=== PATIENT | female | born 1985 | race Caucasian/White ===

== ENCOUNTER 2016-05-18 14:57 | Emergency (ER) | payer MEDICAID ==
[~2016-05-18] VITALS: Ht 160 cm; Wt 81.6 kg
[2016-05-18 15:14] VITALS: BP 155/78; PULSE 88; RESP 16; TEMP 97.6; O2SAT 97
--- NOTE | 2016-05-18 16:20 | NUR ---
Pt placed to ER bed 04 and to gown. Pt here with c/o vaginal bleeding x 3 weeks. Pt states she began her menstrual cycle 3 weeks ago for a week, then stopped and bleeding started back two days later. Pt describes bleeding as clotts. Pt states that she changes her tampon on average q 2 hours with small clotts noted. Pt denies c/o abdominal pain at this time.
--- NOTE | 2016-05-18 16:25 | NUR ---
Lab at bedside.
--- NOTE | 2016-05-18 16:29 | NUR ---
Dr. Waite at bedside to assess pt.
[2016-05-18 16:37] LABS: EOSINOPHILS # (AUTO) 0.1 K/uL (0.0-0.4); MEAN CORPUSCULAR HEMOGLOBIN 23 pg (27-31); MEAN CORPUSCULAR HGB CONC 32 % (32-36); MEAN CORPUSCULAR VOLUME 72 fL (79.0-98.0)
[2016-05-18 16:44] LABS: BASOPHILS % (AUTO) 0.3 % (0.0-2.0); EOSINOPHILS % (AUTO) 0.6 % (0.0-4.0); HEMATOCRIT 29.1 % (36-48); HEMOGLOBIN 9.2 g/dL (12.0-16.0); LYMPHOCYTES # (AUTO) 1.5 K/uL (1.0-5.5); LYMPHOCYTES % (AUTO) 14.7 % (20.5-51.5); MONOCYTES # (AUTO) 0.4 K/uL (0.0-1.0); MONOCYTES % (AUTO) 4.2 % (1.7-9.3); NEUTROPHILS # (AUTO) 8.3 K/uL (1.8-7.7); NEUTROPHILS % (AUTO) 80.2 % (40.0-70.0); PLATELET COUNT (AUTO) 219 K/uL (130-430); RED BLOOD CELL COUNT(AUTO) 4.06 MIL/uL (4.2-6.2); WHITE BLOOD COUNT (AUTO) 10.3 K/uL (4.8-10.8)
[2016-05-18 16:49] LABS: CALCIUM 8.7 mg/dL (8.4-11.0); CREATININE 0.82 mg/dL (0.55-1.30); POTASSIUM 3.5 mmol/L (3.5-5.1)
[2016-05-18 16:59] LABS: BLOOD, URINE 3+ (NEGATIVE); CLARITY/URINE HAZY (CLEAR); COLOR,URINE YELLOW (YELLOW); GLUCOSE,URINE NEGATIVE (NEGATIVE); KETONES,URINE TRACE (NEGATIVE); LEUKOCYTE ESTERASE ,URINE NEGATIVE (NEGATIVE); NITRITE, URINE NEGATIVE (NEGATIVE); PH,URINE 5.5 (5.0-8.0); PROTEIN URINE 2+ (NEGATIVE); UROBILINOGEN,URINE 0.2 (0.2-1.0)
[2016-05-18 17:00] LABS: ALBUMIN 3.8 g/dL (3.4-4.8); TOTAL BILIRUBIN 0.4 mg/dL (0.0-1.0)
[2016-05-18 17:14] LABS: BILIRUBIN,URINE 1+ (NEGATIVE); RBC,URINE >100 /HPF (0-3)
[2016-05-18 17:15] LABS: BACTERIA,URINE MODERATE /HPF (None Seen); MUCUS,URINE None Seen /LPF (None Seen)
--- NOTE | 2016-05-18 17:16 | NUR ---
Consent for blood transfusion signed by pt and Dr. Waite. Pt has no questions regarding transfusion. Pt states that she has had multiple transfusions in the past without reaction.
--- NOTE | 2016-05-18 17:18 | NUR ---
PRBC REQUEST SENT TO LAB
--- NOTE | 2016-05-18 18:00 | NUR ---
Pt resting calmly, even and non-labored respirations, denies c/o pain or discomfort and no needs verbalized at this time.
--- NOTE | 2016-05-18 18:05 | NUR ---
Called lab to check status of blood. Not ready yet. Stated in 30 minutes.
--- NOTE | 2016-05-18 18:15 | NUR ---
Pelvic exam performed by Dr. Waite with female RN Darrius at bedside for entire examination. Patient tolerated procedure well. Patient assisted to position of comfort after examination.
--- NOTE | 2016-05-18 18:48 | NUR ---
Called lab. Stated blood is ready.
--- NOTE | 2016-05-18 19:05 | NUR ---
Consent signed per pt agreeing to administration of blood. Blood has been type and crossmatched. Blood sent from blood bank. Information on unit of blood checked against patient wristband at bedside by two nurses. All information matches. Patient or responsible democrat informed of potential complications associated with blood transfusion. Informed of possible transfusion reaction symptoms. Aware of need to notify nurse at once of itching, shortness of breath, flushing, feeling of impending doom, or other symptoms not previously present. Vital signs taken within 5 minutes prior to initiation of transfusion. RN will remain with patient for first 15 minutes of transfusion at which time vital signs will be re-assessed.
--- NOTE | 2016-05-18 19:20 | NUR ---
No transfusion reaction noted during first 15 minutes. Pt denies c/o SOB, no C/P, VSS. Unit 1 PRBC infusing at 280 mL/hr. PIV to RAC patent and secure.
--- NOTE | 2016-05-18 20:11 | NUR ---
Transfusion of 1unit PRBC finished infusing. Pt VSS. No s/s transfusion reaction noted. Pt states "I feel better". Pt respirations even and unlabored. Speaking in full, complete sentences.
[2016-05-18] MEDS ORDERED: NACL 0.9% 1,000 ML IV ONE (20:15)
[2016-05-18 21:28] VITALS: BP 122/75; PULSE 78; RESP 18; TEMP 98.6; O2SAT 98
--- NOTE | 2016-05-18 21:28 | NUR ---
Patient given written and verbal discharge instructions and verbalizes understanding. ER MD discussed with patient the results and treatment provided. Patient in stable condition. ID arm band removed. IV catheter removed intact and dressing applied, no active bleeding. Rx of Ibuprofen given. Patient educated on pain management and to follow up with PMD. Pain Scale 0/10. Opportunity for questions provided and answered.
== END 2016-05-18 21:28 | disposition home or self-care (01) ==
LOC: SED 14:57
DX: N93.8 Other specified abnormal uterine and vaginal bleeding (principal); D62 Acute posthemorrhagic anemia
CPT/HCPCS: 36415; 80053; 81000; 81025; 84702; 85025; 85610; 85730; 86886; 86900; 86901; 86920; 87086; 96360; 99284; J7030; J7050; P9021

== ENCOUNTER 2016-05-22 11:04 | Emergency (ER) | payer MEDICAID ==
[~2016-05-22] VITALS: Ht 160 cm; Wt 81.6 kg
--- NOTE | 2016-05-22 11:04 | NUR ---
BROUGHT BACK TO BED #5 AND TRIAGED. REPORT GIVEN TO ISMAEL
[2016-05-22 11:05] VITALS: BP 145/54; PULSE 79; RESP 18; TEMP 98.2; O2SAT 99
--- NOTE | 2016-05-22 11:05 | NUR ---
ER at bedside examining patient.
--- NOTE | 2016-05-22 11:10 | NUR ---
Pt presents to ED c/o vag. bleeding x 1 month w/ history of bleeding.
--- NOTE | 2016-05-22 11:12 | NUR ---
pt seen by TONGUER. Pt reports running out Progestrone.
--- NOTE | 2016-05-22 11:15 | NUR ---
Pt ambulated to restroom w/o assist steady gait.
[2016-05-22] MEDS ORDERED: ONDANSETRON HCL 4 MG/2 ML VIAL IVP ONE (11:30)
[2016-05-22] MEDS ORDERED: NACL 0.9% 1,000 ML IV ONE (11:30)
[2016-05-22 11:35] LABS: BILIRUBIN,URINE NEGATIVE (NEGATIVE); BLOOD, URINE 3+ (NEGATIVE); CLARITY/URINE HAZY (CLEAR); COLOR,URINE RED (YELLOW); GLUCOSE,URINE NEGATIVE (NEGATIVE); KETONES,URINE NEGATIVE (NEGATIVE); LEUKOCYTE ESTERASE ,URINE TRACE (NEGATIVE); NITRITE, URINE NEGATIVE (NEGATIVE); PH,URINE 7.5 (5.0-8.0); PROTEIN URINE 2+ (NEGATIVE)
--- NOTE | 2016-05-22 11:50 | NUR ---
Lab at bedside for specimen collection.
[2016-05-22 11:53] LABS: BACTERIA,URINE FEW /HPF (None Seen); MUCUS,URINE None Seen /LPF (None Seen); RBC,URINE >100 /HPF (0-3); WBC,URINE 0-3 /HPF (0-3)
[2016-05-22 11:56] LABS: BASOPHILS % (AUTO) 0.4 % (0.0-2.0); EOSINOPHILS # (AUTO) 0.1 K/uL (0.0-0.4); EOSINOPHILS % (AUTO) 2.1 % (0.0-4.0); HEMATOCRIT 30.3 % (36-48); HEMOGLOBIN 9.1 g/dL (12.0-16.0); LYMPHOCYTES # (AUTO) 0.9 K/uL (1.0-5.5); MEAN CORPUSCULAR HEMOGLOBIN 22 pg (27-31); MEAN CORPUSCULAR HGB CONC 30 % (32-36); MEAN CORPUSCULAR VOLUME 73 fL (79.0-98.0); MONOCYTES # (AUTO) 0.5 K/uL (0.0-1.0); MONOCYTES % (AUTO) 9.3 % (1.7-9.3); NEUTROPHILS # (AUTO) 4.2 K/uL (1.8-7.7); NEUTROPHILS % (AUTO) 72.2 % (40.0-70.0); PLATELET COUNT (AUTO) 179 K/uL (130-430); RED BLOOD CELL COUNT(AUTO) 4.13 MIL/uL (4.2-6.2); RED CELL DISTRIBUTION WIDTH 20.5 % (9.0-15.0); WHITE BLOOD COUNT (AUTO) 5.7 K/uL (4.8-10.8)
[2016-05-22 12:00] LABS: CALCIUM 8.6 mg/dL (8.4-11.0); CREATININE 0.74 mg/dL (0.55-1.30); POTASSIUM 3.8 mmol/L (3.5-5.1)
--- NOTE | 2016-05-22 12:00 | NUR ---
IVF infusing .Pt tolerating well continuing to monitor.
[2016-05-22 12:04] LABS: ALBUMIN 3.4 g/dL (3.4-4.8); INR 0.9 (0.8-1.2); TOTAL BILIRUBIN 0.3 mg/dL (0.0-1.0); TOTAL PROTEIN, SERUM 7.4 g/dL (6.4-8.3)
--- NOTE | 2016-05-22 12:20 | NUR ---
at bedside for POC. Pt verbalized undrstanding.
[2016-05-22 13:15] VITALS: BP 140/56; PULSE 80; RESP 18; TEMP 98.2; O2SAT 99
--- NOTE | 2016-05-22 13:15 | NUR ---
Patient given written and verbal discharge instructions and verbalizes understanding. ER MD discussed with patient the results and treatment provided. Given copies of tests performed in ER. Patient in stable condition. ID arm band removed. IV catheter removed intact and dressing applied, no active bleeding. Rx of cipro,provera given. Patient educated on pain management and to follow up with PMD. Pain Scale 0. Opportunity for questions provided and answered.
== END 2016-05-22 13:15 | disposition home or self-care (01) ==
LOC: SED 11:04
DX: N93.8 Other specified abnormal uterine and vaginal bleeding (principal); N39.0 Urinary tract infection, site not specified
CPT/HCPCS: 36415; 80053; 81000; 81025; 84703; 85025; 85610; 85730; 96361; 96374; 99284; J2405

== ENCOUNTER 2016-05-23 10:40 | Day surgery (SDC) | payer MEDICAID ==
[~2016-05-23] VITALS: Ht 160 cm; Wt 86.2 kg
[2016-05-23 10:44] VITALS: BP 136/85; PULSE 103; RESP 16; TEMP 97.7; O2SAT 98
--- NOTE | 2016-05-23 10:51 | NUR ---
Arrived as walk in for vaginal bleeding x 4 weeks. Blood is now copious, clots q10min. States she feels weak. Patient to ER bed to gown for evaluation. Side rails up. Report given to Antonia LUTZ.
--- NOTE | 2016-05-23 10:53 | NUR ---
ER Dr. Joy at bedside examining patient.
--- NOTE | 2016-05-23 11:00 | NUR ---
Pt brought by family member, ambulatory, pale, A&OX4,respirations even and unlabored, pt c/o vaginal week x 4 days, pt on provera, pt wearing diaper d/t amount of bleeding, blood clots every 10 minutes, skin pink and warm, cap refill <3.
[2016-05-23 11:18] LABS: BASOPHILS % (AUTO) 0.3 % (0.0-2.0); EOSINOPHILS # (AUTO) 0.1 K/uL (0.0-0.4); EOSINOPHILS % (AUTO) 1.4 % (0.0-4.0); HEMATOCRIT 27.9 % (36-48); HEMOGLOBIN 8.9 g/dL (12.0-16.0); LYMPHOCYTES # (AUTO) 1.1 K/uL (1.0-5.5); LYMPHOCYTES % (AUTO) 20.4 % (20.5-51.5); MEAN CORPUSCULAR HEMOGLOBIN 24 pg (27-31); MEAN CORPUSCULAR HGB CONC 32 % (32-36); MEAN CORPUSCULAR VOLUME 74 fL (79.0-98.0); MONOCYTES # (AUTO) 0.6 K/uL (0.0-1.0); NEUTROPHILS # (AUTO) 3.7 K/uL (1.8-7.7); NEUTROPHILS % (AUTO) 67.9 % (40.0-70.0); PLATELET COUNT (AUTO) 181 K/uL (130-430); RED BLOOD CELL COUNT(AUTO) 3.79 MIL/uL (4.2-6.2); RED CELL DISTRIBUTION WIDTH 19.8 % (9.0-15.0); WHITE BLOOD COUNT (AUTO) 5.5 K/uL (4.8-10.8)
[2016-05-23 11:26] LABS: CALCIUM 8.4 mg/dL (8.4-11.0); CREATININE 0.87 mg/dL (0.55-1.30); POTASSIUM 3.8 mmol/L (3.5-5.1)
[2016-05-23 11:30] LABS: ALBUMIN 3.4 g/dL (3.4-4.8); TOTAL BILIRUBIN 0.2 mg/dL (0.0-1.0); TOTAL PROTEIN, SERUM 7.4 g/dL (6.4-8.3)
--- NOTE | 2016-05-23 11:50 | NUR ---
Dr Joy at bedside performing vaginal exam, RN (Abigail )at bedside , procedure well tolerated, pt's VS WNL
--- NOTE | 2016-05-23 12:30 | NUR ---
Pt on stable condition, denies pain or discomfort, VSS. respirations even and unlabored.
--- NOTE | 2016-05-23 13:35 | NUR ---
Patient transferred to outpatient surgery via wheelchair as ordered by Dr Joy and Adelaide. ER physician Dr Joy agreeable to transfer patient to outpatient surgery. P. Patient belongings inventoried and will be sent with patient. Copy of nursing notes, lab reports, EKG, Physicians Orders and X-rays to be sent with patient. Report given to OR nurse. Pt on stable condition, VSS.
[2016-05-23 14:03] VITALS: O2SAT 98
[2016-05-23] MEDS ORDERED: MIDAZOLAM HCL 5 MG/5 ML VIAL IVP ONE (15:20)
[2016-05-23] MEDS ORDERED: WATER FOR IRRIGATION,STERILE 1,000 ML IRRIG.SOLN IR ONE (15:20)
[2016-05-23] MEDS ORDERED: PROPOFOL 200MG/ 20ML VIAL (DIPRIVAN) IV ONE (15:20)
[2016-05-23] MEDS ORDERED: fentaNYL CITRATE/PF 100 MCG/2 ML AMP IVP ONE (15:20)
[2016-05-23] MEDS ORDERED: LR 1,000 ML IV.SOLN IV ONE (15:20)
[2016-05-23] MEDS ORDERED: ONDANSETRON HCL 4 MG/2 ML VIAL IVP ONE (15:20)
[2016-05-23] MEDS ORDERED: ONDANSETRON HCL 4 MG/2 ML VIAL IVP PRN (15:45)
[2016-05-23] MEDS ORDERED: OXYCODONE/ACETAMINOPHEN 5-325 TABLET PO PRN ×2 (15:45)
[2016-05-23] MEDS ORDERED: MORPHINE SULFATE 10 MG/ML VIAL IVP PRN (15:45)
[2016-05-23] MEDS ORDERED: LR 1,000 ML IV SCH ×2 (16:14→19:30)
[2016-05-23] MEDS ORDERED: METOCLOPRAMIDE HCL 10 MG/2 ML VIAL IVP PRN (16:15)
[2016-05-23] MEDS ORDERED: MEPERIDINE HCL/PF 50 MG/ML AMP IVP PRN ×2 (16:15)
[2016-05-23] MEDS ORDERED: MEPERIDINE HCL/PF 25 MG/ML DISP.SYRIN IVP PRN (16:15)
[2016-05-23] MEDS ORDERED: MEPERIDINE HCL/PF 25 MG/ML DISP.SYRIN ONE (16:18)
[2016-05-23 16:36] VITALS: BP 116/70; PULSE 64; RESP 16
== END 2016-05-23 17:16 | disposition home or self-care (01) ==
LOC: SED 10:40 → EDSTATUS 13:45 → SDS 13:52
PROVIDERS: ATTEND Obstetrics & Gynecology
DX: N92.0 Excessive and frequent menstruation with regular cycle (principal); D64.9 Anemia, unspecified
CPT/HCPCS: 36415; 58120; 76830; 76857; 80053; 85025; 86886; 86900; 86901; 88305; J2175; J2250; J2405; J2704; J3010; J7120

== ENCOUNTER 2016-07-18 11:10 | Emergency (ER) | payer MEDICAID ==
[~2016-07-18] VITALS: Ht 157.5 cm; Wt 81.6 kg
[2016-07-18 11:16] VITALS: BP_SYST 125
[2016-07-18 12:08] LABS: BILIRUBIN,URINE NEGATIVE (NEGATIVE); BLOOD, URINE NEGATIVE (NEGATIVE); CLARITY/URINE CLEAR (CLEAR); COLOR,URINE YELLOW (YELLOW); GLUCOSE,URINE NEGATIVE (NEGATIVE); KETONES,URINE NEGATIVE (NEGATIVE); LEUKOCYTE ESTERASE ,URINE TRACE (NEGATIVE); NITRITE, URINE NEGATIVE (NEGATIVE); PROTEIN URINE NEGATIVE (NEGATIVE); UROBILINOGEN,URINE 0.2 (0.2-1.0)
[2016-07-18 12:09] LABS: BASOPHILS % (AUTO) 0.5 % (0.0-2.0); EOSINOPHILS # (AUTO) 0.1 K/uL (0.0-0.4); EOSINOPHILS % (AUTO) 1.7 % (0.0-4.0); HEMATOCRIT 26.3 % (36-48); HEMOGLOBIN 7.7 g/dL (12.0-16.0); LYMPHOCYTES # (AUTO) 1.2 K/uL (1.0-5.5); LYMPHOCYTES % (AUTO) 17.3 % (20.5-51.5); MEAN CORPUSCULAR HEMOGLOBIN 19 pg (27-31); MEAN CORPUSCULAR HGB CONC 29 % (32-36); MEAN CORPUSCULAR VOLUME 66 fL (79.0-98.0); MONOCYTES # (AUTO) 0.4 K/uL (0.0-1.0); MONOCYTES % (AUTO) 5.8 % (1.7-9.3); NEUTROPHILS % (AUTO) 74.7 % (40.0-70.0); PLATELET COUNT (AUTO) 249 K/uL (130-430); RED CELL DISTRIBUTION WIDTH 18.4 % (9.0-15.0); WHITE BLOOD COUNT (AUTO) 6.7 K/uL (4.8-10.8)
[2016-07-18 12:11] LABS: CREATININE 0.78 mg/dL (0.55-1.30); POTASSIUM 3.7 mmol/L (3.5-5.1)
[2016-07-18 12:13] LABS: PROTHROMBIN TIME 10.9 SECS (9.5-12.5)
[2016-07-18 12:16] LABS: ALBUMIN 3.8 g/dL (3.4-4.8); TOTAL BILIRUBIN 0.3 mg/dL (0.0-1.0); TOTAL PROTEIN, SERUM 7.9 g/dL (6.4-8.3)
[2016-07-18 12:23] LABS: BACTERIA,URINE FEW /HPF (None Seen); MUCUS,URINE 1+ /LPF (None Seen); RBC,URINE 0-3 /HPF (0-3)
[2016-07-18 13:00] VITALS: BP_SYST 125
== END 2016-07-18 13:00 | disposition home or self-care (01) ==
LOC: SED 11:10
DX: D64.9 Anemia, unspecified (principal)
CPT/HCPCS: 36415; 80053; 81000-TC; 83880; 84484; 85025; 85610-TC; 87086; 93005; 99285

== ENCOUNTER 2016-07-24 13:16 | Emergency (ER) | payer MEDICAID ==
[~2016-07-24] VITALS: Ht 160 cm; Wt 81.6 kg
[2016-07-24 13:37] VITALS: BP 131/85; PULSE 104; RESP 20; TEMP 98.8; O2SAT 100
[2016-07-24 14:07] LABS: BILIRUBIN,URINE NEGATIVE (NEGATIVE); BLOOD, URINE NEGATIVE (NEGATIVE); CLARITY/URINE SL HAZY (CLEAR); COLOR,URINE YELLOW (YELLOW); GLUCOSE,URINE NEGATIVE (NEGATIVE); KETONES,URINE NEGATIVE (NEGATIVE); LEUKOCYTE ESTERASE ,URINE NEGATIVE (NEGATIVE); NITRITE, URINE NEGATIVE (NEGATIVE); PH,URINE 8.5 (5.0-8.0); PROTEIN URINE NEGATIVE (NEGATIVE)
[2016-07-24 14:12] LABS: BASOPHILS % (AUTO) 0.3 % (0.0-2.0); EOSINOPHILS # (AUTO) 0.2 K/uL (0.0-0.4); EOSINOPHILS % (AUTO) 1.4 % (0.0-4.0); HEMOGLOBIN 7.6 g/dL (12.0-16.0); LYMPHOCYTES # (AUTO) 0.7 K/uL (1.0-5.5); LYMPHOCYTES % (AUTO) 6.6 % (20.5-51.5); MEAN CORPUSCULAR HEMOGLOBIN 19 pg (27-31); MEAN CORPUSCULAR HGB CONC 29 % (32-36); MEAN CORPUSCULAR VOLUME 65 fL (79.0-98.0); MONOCYTES # (AUTO) 0.8 K/uL (0.0-1.0); MONOCYTES % (AUTO) 6.8 % (1.7-9.3); NEUTROPHILS # (AUTO) 9.5 K/uL (1.8-7.7); NEUTROPHILS % (AUTO) 84.9 % (40.0-70.0); PLATELET COUNT (AUTO) 211 K/uL (130-430); RED BLOOD CELL COUNT(AUTO) 4.05 MIL/uL (4.2-6.2); WHITE BLOOD COUNT (AUTO) 11.2 K/uL (4.8-10.8)
[2016-07-24 14:14] LABS: HEMATOCRIT 26.2 % (36-48)
[2016-07-24 14:18] LABS: CALCIUM 9.1 mg/dL (8.4-11.0); CREATININE 0.78 mg/dL (0.55-1.30); POTASSIUM 3.7 mmol/L (3.5-5.1)
[2016-07-24 14:23] LABS: ALBUMIN 3.8 g/dL (3.4-4.8); TOTAL BILIRUBIN 0.4 mg/dL (0.0-1.0)
[2016-07-24 15:56] VITALS: BP 120/79; PULSE 101; RESP 16; TEMP 98; O2SAT 100
== END 2016-07-24 15:56 | disposition home or self-care (01) ==
LOC: SED 13:16
DX: R42 Dizziness and giddiness (principal); R53.1 Weakness; D64.9 Anemia, unspecified
CPT/HCPCS: 36415; 80053; 81003; 85025; 99284

== ENCOUNTER 2017-03-11 08:27 | Emergency (ER) | payer MEDICAID ==
[~2017-03-11] VITALS: Ht 157.5 cm; Wt 81.6 kg
[2017-03-11 08:27] VITALS: BP_SYST 126
[2017-03-11 09:40] LABS: BASOPHILS % (AUTO) 0.4 % (0.0-2.0); EOSINOPHILS # (AUTO) 0.2 K/uL (0.0-0.4); EOSINOPHILS % (AUTO) 2.2 % (0.0-4.0); HEMATOCRIT 33.1 % (36-48); HEMOGLOBIN 10.2 g/dL (12.0-16.0); LYMPHOCYTES # (AUTO) 1.3 K/uL (1.0-5.5); LYMPHOCYTES % (AUTO) 16.4 % (20.5-51.5); MEAN CORPUSCULAR HEMOGLOBIN 23 pg (27-31); MEAN CORPUSCULAR HGB CONC 31 % (32-36); MEAN CORPUSCULAR VOLUME 76 fL (79.0-98.0); MONOCYTES # (AUTO) 0.6 K/uL (0.0-1.0); NEUTROPHILS # (AUTO) 5.8 K/uL (1.8-7.7); PLATELET COUNT (AUTO) 263 K/uL (130-430); RED BLOOD CELL COUNT(AUTO) 4.36 MIL/uL (4.2-6.2); RED CELL DISTRIBUTION WIDTH 15.4 % (9.0-15.0); WHITE BLOOD COUNT (AUTO) 7.9 K/uL (4.8-10.8)
[2017-03-11 09:58] LABS: CALCIUM 8.9 mg/dL (8.4-11.0); CREATININE 0.8 mg/dL (0.55-1.30); POTASSIUM 3.7 mmol/L (3.5-5.1)
[2017-03-11 10:05] LABS: PROTHROMBIN TIME 10.4 SECS (9.5-12.5)
[2017-03-11 10:17] LABS: ALBUMIN 3.5 g/dL (3.4-4.8); THYROID STIMULATING HORMONE 1.23 uIu/mL (0.34-4.82); TOTAL BILIRUBIN 0.4 mg/dL (0.0-1.0)
[2017-03-11 10:39] LABS: BILIRUBIN,URINE NEGATIVE (NEGATIVE); BLOOD, URINE 3+ (NEGATIVE); CLARITY/URINE HAZY (CLEAR); COLOR,URINE RED (YELLOW); GLUCOSE,URINE NEGATIVE (NEGATIVE); KETONES,URINE NEGATIVE (NEGATIVE); LEUKOCYTE ESTERASE ,URINE TRACE (NEGATIVE); NITRITE, URINE NEGATIVE (NEGATIVE); PROTEIN URINE 3+ (NEGATIVE); UROBILINOGEN,URINE 0.2 (0.2-1.0)
[2017-03-11 10:59] LABS: FREE T4 (FREE THYROXINE) 0.9 ng/dL (0.6-1.6)
[2017-03-11] MEDS ORDERED: ACETAMINOPHEN 500 MG TABLET PO ONE (11:15)
[2017-03-11 12:05] VITALS: BP_SYST 120
[2017-03-11 13:13] LABS: BACTERIA,URINE RARE /HPF (None Seen); RBC,URINE >100 /HPF (0-3)
== END 2017-03-11 12:05 | disposition home or self-care (01) ==
LOC: SED 08:27
DX: N93.9 Abnormal uterine and vaginal bleeding, unspecified (principal); Z86.2 Personal history of diseases of the blood and blood-forming organs and certain disorders involving the immune mechanism
CPT/HCPCS: 36415; 80053; 81000-TC; 81025; 84439; 84443-TC; 84702-TC; 85025; 85610-TC; 86900; 86901; 87086; 99285

== ENCOUNTER 2017-03-13 06:24 | Emergency (ER) | payer MEDICAID ==
[~2017-03-13] VITALS: Ht 160 cm; Wt 81.6 kg
[2017-03-13 06:45] VITALS: BP_SYST 126
[2017-03-13] MEDS ORDERED: NACL 0.9% 1,000 ML IV ONE (08:00)
[2017-03-13 08:11] LABS: BASOPHILS % (AUTO) 0.5 % (0.0-2.0); EOSINOPHILS # (AUTO) 0.1 K/uL (0.0-0.4); EOSINOPHILS % (AUTO) 1.1 % (0.0-4.0); HEMATOCRIT 26.1 % (36-48); HEMOGLOBIN 8.2 g/dL (12.0-16.0); LYMPHOCYTES # (AUTO) 0.9 K/uL (1.0-5.5); LYMPHOCYTES % (AUTO) 8.7 % (20.5-51.5); MEAN CORPUSCULAR HEMOGLOBIN 24 pg (27-31); MEAN CORPUSCULAR HGB CONC 32 % (32-36); MEAN CORPUSCULAR VOLUME 75 fL (79.0-98.0); MONOCYTES # (AUTO) 0.5 K/uL (0.0-1.0); MONOCYTES % (AUTO) 5.4 % (1.7-9.3); NEUTROPHILS # (AUTO) 8.3 K/uL (1.8-7.7); NEUTROPHILS % (AUTO) 84.3 % (40.0-70.0); PLATELET COUNT (AUTO) 217 K/uL (130-430); RED BLOOD CELL COUNT(AUTO) 3.46 MIL/uL (4.2-6.2); RED CELL DISTRIBUTION WIDTH 15.4 % (9.0-15.0); WHITE BLOOD COUNT (AUTO) 9.8 K/uL (4.8-10.8)
[2017-03-13] MEDS ORDERED: fentaNYL CITRATE/PF 100 MCG/2 ML AMP IVP ONE (08:15)
[2017-03-13 08:34] LABS: CALCIUM 8.5 mg/dL (8.4-11.0); CREATININE 0.83 mg/dL (0.55-1.30); POTASSIUM 3.9 mmol/L (3.5-5.1)
[2017-03-13 08:39] LABS: PROTHROMBIN TIME 10.5 SECS (9.5-12.5)
[2017-03-13 08:51] LABS: ALBUMIN 3.4 g/dL (3.4-4.8); TOTAL BILIRUBIN 0.3 mg/dL (0.0-1.0)
[2017-03-13 10:45] VITALS: BP_SYST 130
== END 2017-03-13 10:45 | disposition home or self-care (01) ==
LOC: SED 06:24
DX: N94.6 Dysmenorrhea, unspecified (principal); Z86.2 Personal history of diseases of the blood and blood-forming organs and certain disorders involving the immune mechanism
CPT/HCPCS: 36415; 80053; 85025; 85610; 85730; 96361; 96374; 99284; J3010; J7030

== ENCOUNTER 2019-02-14 13:02 | Emergency (ER) | payer OTHER ==
[2019-02-14] MEDS ORDERED: PROCHLORPERAZINE EDISYLATE 10 MG/2 ML VIAL ONE (14:44)
[2019-02-14] MEDS ORDERED: MORPHINE 4 MG/ML INJ. SYRINGE ONE (14:44)
[2019-02-14] MEDS ORDERED: NS 1000 ML IV.SOLN IV ONE (14:44)
[2019-03-06 14:34] LABS: INR 1.1 (0.8-1.2); PROTHROMBIN TIME 10.6 SECS (9.5-12.5)
[2019-03-06 14:35] LABS: CALCIUM 8.3 mg/dL (8.4-11.0); CREATININE 0.72 mg/dL (0.55-1.30); POTASSIUM 3.6 mmol/L (3.5-5.1)
[2019-03-06 14:36] LABS: ALBUMIN 3.8 g/dL (3.4-4.8); TOTAL BILIRUBIN 0.4 mg/dL (0.0-1.0)
[2019-03-06 14:38] LABS: HEMATOCRIT 28.3 % (36-48); HEMOGLOBIN 8.6 g/dL (12.0-16.0); MEAN CORPUSCULAR HEMOGLOBIN 19 pg (27-31); MEAN CORPUSCULAR HGB CONC 30 % (32-36); MEAN CORPUSCULAR VOLUME 64 fL (79.0-98.0); NEUTROPHILS % (AUTO) 84.3 % (40.0-70.0); PLATELET COUNT (AUTO) 225 K/uL (130-430); RED BLOOD CELL COUNT(AUTO) 4.44 MIL/uL (4.2-6.2); RED CELL DISTRIBUTION WIDTH 20.3 % (9.0-15.0); WHITE BLOOD COUNT (AUTO) 8.2 K/uL (4.8-10.8)
[2019-03-06 14:39] LABS: BASOPHILS % (AUTO) 0.4 % (0.0-2.0); EOSINOPHILS # (AUTO) 0.1 K/uL (0.0-0.4); EOSINOPHILS % (AUTO) 1.4 % (0.0-4.0); LYMPHOCYTES # (AUTO) 0.6 K/uL (1.0-5.5); LYMPHOCYTES % (AUTO) 6.7 % (20.5-51.5); MONOCYTES # (AUTO) 0.6 K/uL (0.0-1.0); MONOCYTES % (AUTO) 7.2 % (1.7-9.3)
[2019-03-06 14:40] LABS: CLARITY/URINE CLEAR (CLEAR); COLOR,URINE YELLOW (YELLOW)
[2019-03-06 14:41] LABS: BILIRUBIN,URINE NEGATIVE (NEGATIVE); BLOOD, URINE NEGATIVE (NEGATIVE); GLUCOSE,URINE NEGATIVE (NEGATIVE); KETONES,URINE NEGATIVE (NEGATIVE); LEUKOCYTE ESTERASE ,URINE NEGATIVE (NEGATIVE); NITRITE, URINE NEGATIVE (NEGATIVE); PROTEIN URINE NEGATIVE (NEGATIVE)
== END 2019-02-14 16:00 | disposition home or self-care (01) ==
LOC: SED 13:02
DX: D64.9 Anemia, unspecified (principal); R11.2 Nausea with vomiting, unspecified
CPT/HCPCS: 36415; 80053; 81003; 85025; 85610; 85730; 86710; 86886; 86900; 86901; 93005; 96361; 96374; 96375; 99284; J0780; J2270; J7030

== ENCOUNTER 2019-04-11 16:04 | Emergency (ER) | payer OTHER ==
[~2019-04-11] VITALS: Ht 160 cm; Wt 77.1 kg
[2019-04-11 16:31] VITALS: BP_SYST 127
--- NOTE | 2019-04-11 16:40 | NUR ---
Patient triaged and placed in waiting room. VSS and patient appears in no acute distress at this time. Accompanied by friend , awaiting available bed, and MD notified of need for MSE.
--- NOTE | 2019-04-11 17:45 | NUR ---
Per registration, pt LWBS
== END 2019-04-11 17:45 | disposition left against medical advice (07) ==
LOC: SED 16:04
DX: R53.1 Weakness (principal); Z53.21 Procedure and treatment not carried out due to patient leaving prior to being seen by health care provider

== ENCOUNTER 2019-05-30 11:05 | Emergency (ER) | payer OTHER ==
[~2019-05-30] VITALS: Ht 160 cm; Wt 77.1 kg
--- NOTE | 2019-05-30 11:10 | NUR ---
Patient to ER bed 7 to gown for evaluation. Side rails up.
[2019-05-30 11:12] VITALS: BP_SYST 125
--- NOTE | 2019-05-30 11:12 | NUR ---
Patient presented to ER C/O vaginal bleeding . Patient A&Ox4, ambulatory to ER, afebrile, skin pink and warm, pain 12/19 , N/V/D. Patient states she had has left pelvic pain today & vaginal bleed x2 weeks, LMP 05/18/2019.
--- NOTE | 2019-05-30 11:20 | NUR ---
Dr Hilario at bedside examining patient
[2019-05-30] MEDS ORDERED: KETOROLAC TROMETHAMINE 30 MG VIAL IVP ONE (11:45)
[2019-05-30] MEDS ORDERED: NACL 0.9% 1,000 ML IV ONE (11:45)
[2019-05-30 11:55] LABS: BASOPHILS % (AUTO) 0.3 % (0.0-2.0); EOSINOPHILS # (AUTO) 0.1 K/uL (0.0-0.4); HEMATOCRIT 28.6 % (36-48); HEMOGLOBIN 8.7 g/dL (12.0-16.0); LYMPHOCYTES # (AUTO) 1.2 K/uL (1.0-5.5); MEAN CORPUSCULAR HEMOGLOBIN 20 pg (27-31); MEAN CORPUSCULAR HGB CONC 30 % (32-36); MEAN CORPUSCULAR VOLUME 66 fL (79.0-98.0); MONOCYTES # (AUTO) 0.7 K/uL (0.0-1.0); MONOCYTES % (AUTO) 8.3 % (1.7-9.3); NEUTROPHILS # (AUTO) 6.9 K/uL (1.8-7.7); NEUTROPHILS % (AUTO) 77.4 % (40.0-70.0); PLATELET COUNT (AUTO) 188 K/uL (130-430); RED BLOOD CELL COUNT(AUTO) 4.32 MIL/uL (4.2-6.2); RED CELL DISTRIBUTION WIDTH 20.2 % (9.0-15.0); WHITE BLOOD COUNT (AUTO) 8.9 K/uL (4.8-10.8)
[2019-05-30 12:05] LABS: CALCIUM 8.4 mg/dL (8.4-11.0); CREATININE 0.75 mg/dL (0.55-1.30); POTASSIUM 3.3 mmol/L (3.5-5.1)
[2019-05-30 13:02] VITALS: BP_SYST 125
--- NOTE | 2019-05-30 13:04 | NUR ---
Patient given written and verbal discharge instructions and verbalizes understanding. ER MD discussed with patient the results and treatment provided. Patient in stable condition. ID arm band removed. IV catheter removed intact and dressing applied, no active bleeding. Rx of Motrin given. Patient educated on pain management and to follow up with PMD. Pain Scale 2/10. Opportunity for questions provided and answered. Medication side effect fact sheet provided.
== END 2019-05-30 13:04 | disposition home or self-care (01) ==
LOC: SED 11:05
DX: N93.9 Abnormal uterine and vaginal bleeding, unspecified (principal); R42 Dizziness and giddiness; R03.0 Elevated blood-pressure reading, without diagnosis of hypertension
CPT/HCPCS: 36415; 76856; 80048; 81025; 85025; 96361; 96374; 99284; J1885; J7030

== ENCOUNTER 2019-09-14 00:41 | Emergency (ER) | payer BC, OTHER ==
[~2019-09-14] VITALS: Ht 160 cm; Wt 81.6 kg
[2019-09-14 00:50] VITALS: BP_SYST 131
--- NOTE | 2019-09-14 01:00 | NUR ---
PT AAO AND AMBULATORY C/O ACUTE ONSET OF ABDOMNIAL PAIN 12/19. 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
--- NOTE | 2019-09-14 01:07 | NUR ---
ER Dr. HU at bedside examining patient.
--- NOTE | 2019-09-14 01:25 | NUR ---
Patient to ER bed CHAIR 1 to gown for evaluation.
--- NOTE | 2019-09-14 01:45 | NUR ---
CT SCAN COMPLETE
[2019-09-14 01:50] LABS: BASOPHILS % (AUTO) 0.3 % (0.0-2.0); EOSINOPHILS # (AUTO) 0.1 K/uL (0.0-0.4); EOSINOPHILS % (AUTO) 1.1 % (0.0-4.0); HEMATOCRIT 30.1 % (36-48); HEMOGLOBIN 9.5 g/dL (12.0-16.0); LYMPHOCYTES # (AUTO) 1.6 K/uL (1.0-5.5); LYMPHOCYTES % (AUTO) 16.6 % (20.5-51.5); MEAN CORPUSCULAR HEMOGLOBIN 23 pg (27-31); MEAN CORPUSCULAR HGB CONC 32 % (32-36); MEAN CORPUSCULAR VOLUME 74 fL (79.0-98.0); MONOCYTES # (AUTO) 0.7 K/uL (0.0-1.0); MONOCYTES % (AUTO) 6.8 % (1.7-9.3); NEUTROPHILS # (AUTO) 7.2 K/uL (1.8-7.7); NEUTROPHILS % (AUTO) 75.2 % (40.0-70.0); PLATELET COUNT (AUTO) 219 K/uL (130-430); RED BLOOD CELL COUNT(AUTO) 4.09 MIL/uL (4.2-6.2); RED CELL DISTRIBUTION WIDTH 16.3 % (9.0-15.0); WHITE BLOOD COUNT (AUTO) 9.6 K/uL (4.8-10.8)
[2019-09-14 02:04] LABS: BILIRUBIN,URINE NEGATIVE (NEGATIVE); BLOOD, URINE NEGATIVE (NEGATIVE); CLARITY/URINE CLEAR (CLEAR); COLOR,URINE YELLOW (YELLOW); GLUCOSE,URINE NEGATIVE (NEGATIVE); KETONES,URINE TRACE (NEGATIVE); LEUKOCYTE ESTERASE ,URINE NEGATIVE (NEGATIVE); NITRITE, URINE NEGATIVE (NEGATIVE); PROTEIN URINE TRACE (NEGATIVE); UROBILINOGEN,URINE 0.2 (0.2-1.0)
[2019-09-14 02:10] LABS: CREATININE 0.82 mg/dL (0.55-1.30); POTASSIUM 3.5 mmol/L (3.5-5.1)
[2019-09-14 02:15] LABS: ALBUMIN 3.9 g/dL (3.4-4.8); TOTAL BILIRUBIN 0.3 mg/dL (0.0-1.0)
--- NOTE | 2019-09-14 02:15 | NUR ---
PT MOVED TO BED 5. PT GOWNED AND SIDERAILS UP.
--- NOTE | 2019-09-14 02:45 | NUR ---
DR. HU AT BEDSIDE TO RE-EVALUATE. U/S ORDERED.
[2019-09-14] MEDS ORDERED: NACL 0.9% 1,000 ML IV ONE (03:00)
[2019-09-14] MEDS ORDERED: ONDANSETRON HCL 4 MG/2 ML VIAL IVP ONE (03:00)
[2019-09-14] MEDS ORDERED: fentaNYL CITRATE/PF 100 MCG/2 ML AMP IVP ONE (03:00)
[2019-09-14 04:38] VITALS: BP_SYST 131
--- NOTE | 2019-09-14 04:38 | NUR ---
Patient given written and verbal discharge instructions and verbalizes understanding. DR. MAYTE ASHLEY MD discussed with patient the results and treatment provided. Patient in stable condition. ID arm band removed. IV catheter removed intact and dressing applied, no active bleeding. Rx of ZOFRAN given. Patient educated on pain management and to follow up with PMD. Pain Scale 0/10. Opportunity for questions provided and answered. Medication side effect fact sheet provided.
== END 2019-09-14 04:38 | disposition home or self-care (01) ==
LOC: SED 00:41
DX: K80.20 Calculus of gallbladder without cholecystitis without obstruction (principal); R11.10 Vomiting, unspecified; Z86.2 Personal history of diseases of the blood and blood-forming organs and certain disorders involving the immune mechanism
CPT/HCPCS: 36415; 74176; 76705; 80053; 81003; 81025; 83690; 85025; 96361; 96374; 96375; 99285; J2405; J3010; J7030

== ENCOUNTER 2019-09-26 23:13 | Emergency (ER) | payer BC ==
[~2019-09-26] VITALS: Ht 160 cm; Wt 81.6 kg
[2019-09-26 23:20] VITALS: BP_SYST 137
[2019-09-26] MEDS ORDERED: fentaNYL CITRATE/PF 100 MCG/2 ML AMP IVP ONE (23:45)
[2019-09-26] MEDS ORDERED: NACL 0.9% 1,000 ML IV ONE (23:45)
[2019-09-26] MEDS ORDERED: ONDANSETRON HCL 4 MG/2 ML VIAL IVP ONE (23:45)
[2019-09-27 00:17] LABS: BASOPHILS % (AUTO) 0.4 % (0.0-2.0); EOSINOPHILS # (AUTO) 0.2 K/uL (0.0-0.4); EOSINOPHILS % (AUTO) 1.5 % (0.0-4.0); HEMATOCRIT 33.2 % (36-48); HEMOGLOBIN 10.4 g/dL (12.0-16.0); LYMPHOCYTES % (AUTO) 19.1 % (20.5-51.5); MEAN CORPUSCULAR HEMOGLOBIN 22 pg (27-31); MEAN CORPUSCULAR HGB CONC 31 % (32-36); MEAN CORPUSCULAR VOLUME 72 fL (79.0-98.0); MONOCYTES # (AUTO) 0.9 K/uL (0.0-1.0); MONOCYTES % (AUTO) 8.3 % (1.7-9.3); NEUTROPHILS # (AUTO) 7.5 K/uL (1.8-7.7); NEUTROPHILS % (AUTO) 70.7 % (40.0-70.0); PLATELET COUNT (AUTO) 225 K/uL (130-430); RED BLOOD CELL COUNT(AUTO) 4.63 MIL/uL (4.2-6.2); RED CELL DISTRIBUTION WIDTH 17.1 % (9.0-15.0); WHITE BLOOD COUNT (AUTO) 10.7 K/uL (4.8-10.8)
[2019-09-27 00:24] LABS: CALCIUM 9.7 mg/dL (8.4-11.0); CREATININE 0.89 mg/dL (0.55-1.30); POTASSIUM 3.4 mmol/L (3.5-5.1)
[2019-09-27 00:36] LABS: ALBUMIN 3.8 g/dL (3.4-4.8); TOTAL BILIRUBIN 0.3 mg/dL (0.0-1.0)
[2019-09-27 01:24] VITALS: BP_SYST 109
== END 2019-09-27 01:24 | disposition home or self-care (01) ==
LOC: SED 23:13
DX: K80.20 Calculus of gallbladder without cholecystitis without obstruction (principal); R11.10 Vomiting, unspecified; Z86.2 Personal history of diseases of the blood and blood-forming organs and certain disorders involving the immune mechanism
CPT/HCPCS: 36415; 76705; 80053; 83690; 84702; 85025; 96361; 96374; 96375; 99284; J2405; J3010; J7030